=== PATIENT | female | born 2000 | race Hispanic/Latino ===

== ENCOUNTER 2020-08-05 19:34 | Emergency (ER) | payer MEDICAID, SELFPAY ==
[2020-08-05] MEDS ORDERED: Ondansetron ODT 4 MG TAB ONE (19:56)
== END 2020-08-05 19:59 | disposition home or self-care (01) ==
LOC: BURERS 19:34
DX: A08.4 Viral intestinal infection, unspecified (principal)
CPT/HCPCS: 99283; Q0162